=== PATIENT | male | born 1965 | race American Indian/Alaskan Native ===

== ENCOUNTER 2017-12-27 09:38 | Outpatient (CLI) | payer BC ==
--- NOTE | 2017-12-27 15:08 | XRay Report ---
XRAY RIGHT KNEE 4 THREE VIEWS: 12/27/17 CLINICAL: Right knee pain. FINDINGS: Medial joint space narrowing with small osteophytes. The lateral joint space is normal. Patellofemoral osteophytes. A large quadriceps insertion enthesophyte no fracture or dislocation. No joint effusion.Normal soft tissues. IMPRESSION: Osteoporosis of the medial joint space and patellofemoral joint. Quadriceps enthesopathy.
== END 2017-12-27 09:39 | disposition home or self-care (01) ==
LOC: SPVIMAG 09:38
PROVIDERS: ATTEND Orthopaedic Surgery Sports Medicine
DX: M76.891 Other specified enthesopathies of right lower limb, excluding foot (principal); M81.0 Age-related osteoporosis without current pathological fracture